=== PATIENT | male | born 2005 | race Caucasian/White ===

== ENCOUNTER 2025-03-22 04:09 | Inpatient (IN) | payer OTHER ==
[~2025-03-22] VITALS: Ht 182.9 cm; Wt 82.1 kg
[2025-03-22 04:19] VITALS: O2SAT 97
[2025-03-22 06:41] LABS: BASOPHILS % 0.6 % (0.0-2.0); EOSINOPHILS % 6.5 % (0.0-5.0); HEMATOCRIT. 46.0 % (42.0-52.0); HEMOGLOBIN. 15.5 g/dL (14.0-18.0); LYMPHOCYTES % 35.4 % (20.0-50.0); MEAN PLATELET VOLUME 8.2 fl (7.4-10.4); MONOCYTES % 6.0 % (2.0-8.0); NEUTROPHILS % 51.5 % (40.0-76.0); PLATELET 261 x1000/uL (130-400); RED BLOOD CELL COUNT 5.34 mill/uL (4.7-6.1); RED CELL DISTRIBUTION WIDTH 14.2 % (11.6-14.6)
[2025-03-22 07:02] LABS: CREATININE 0.9 mg/dL (0.6-1.3)
[2025-03-22 07:03] LABS: ETHANOL BLOOD 300 mg/dL (<10); UREA NITROGEN BLOOD 12 mg/dL (9-23)
[2025-03-22 07:04] LABS: ASPARTATE AMINOTRANSFERASE 24 IU/L (<34)
[2025-03-22 07:05] LABS: BILIRUBIN DIRECT 0.1 mg/dL (<=3.0); BILIRUBIN TOTAL 0.3 mg/dL (0.1-1.0); PROTEIN TOTAL 7.5 g/dL (6.0-8.3)
[2025-03-22 07:20] VITALS: BP 95/51; PULSE 73; RESP 18; TEMP 36.3; TEMP 36.3068; O2SAT 100
[2025-03-22 11:55] LABS: CLARITY URINE CLEAR (CLEAR); COLOR URINE YELLOW (YELLOW); GLUCOSE URINE NEGATIVE (NEGATIVE); KETONES URINE NEGATIVE (NEGATIVE); LEUKOCYTE ESTERASE URINE NEGATIVE (NEGATIVE); NITRITE URINE NEGATIVE (NEGATIVE); OCCULT BLOOD URINE NEGATIVE (NEGATIVE); PH URINE 5.5 (4.5-8.0); PROTEIN URINE NEGATIVE (NEGATIVE); SPECIFIC GRAVITY URINE 1.007 (1.005-1.030); UROBILINOGEN URINE 0.2 E.U./dL (0.2-1.0)
[2025-03-22 12:00] VITALS: BP 97/45; PULSE 72; RESP 20; TEMP 36.6; O2SAT 98
[2025-03-22 12:15] LABS: *AMPHETAMINES SCREEN URINE NEGATIVE (NEGATIVE); *BARBITURATES SCREEN URINE NEGATIVE (NEGATIVE); *BENZODIAZEPINES SCREEN URINE NEGATIVE (NEGATIVE); *COCAINE SCREEN URINE NEGATIVE (NEGATIVE); CANNABINOID URINE SCREEN NEGATIVE (NEGATIVE); ECSTASY MDMA SCREEN URINE NEGATIVE (NEGATIVE); METHADONE URINE SCREEN NEGATIVE (NEGATIVE); OPIATES URINE SCREEN NEGATIVE (NEGATIVE); PHENCYCLIDINE URINE SCREEN NEGATIVE (NEGATIVE)
[2025-03-22 14:33] VITALS: BP 94/50; PULSE 74; RESP 18; TEMP 97.9
[2025-03-22] MEDS: FOLIC ACID 1MG TABLET PO SCH (14:45)
[2025-03-22] MEDS: THIAMINE HCL 100MG TABLET PO SCH (15:02)
[2025-03-22] MEDS: MULTIVITAMINS,THER W-MINERALS TABLET PO SCH (15:02)
== END 2025-03-22 15:45 | disposition home or self-care (01) | DRG 918 ==
LOC: ER 04:09 → EDBEDREQ 06:09 → EDBEDREQTM 06:09 → ENRESERV 06:43 → ER 07:25 → CMPBEDREQ 08:04 → 7WST 08:21
PROVIDERS: ADMIT Internal Medicine; ATTEND Internal Medicine
DX: T51.0X1A Toxic effect of ethanol, accidental (unintentional), initial encounter (principal); F10.129 Alcohol abuse with intoxication, unspecified; Y90.8 Blood alcohol level of 240 mg/100 ml or more
CPT/HCPCS: 36415; 80048; 80076; 80305; 80307; 80320; 80329; 81003; 85025; 93005; 99291; G0480